=== PATIENT | male | born 1995 | race Caucasian/White ===

== ENCOUNTER 2018-07-31 16:08 | Emergency (ER) | payer SELFPAY ==
[~2018-07-31] VITALS: Ht 170.2 cm; Wt 53.7 kg
[2018-07-31 16:27] VITALS: BP 138/87; PULSE 135; RESP 18; Ht 170.2 cm; Wt 53.7 kg
== END 2018-07-31 22:00 | disposition left against medical advice (07) ==
LOC: E/R 16:08
DX: Z53.21 Procedure and treatment not carried out due to patient leaving prior to being seen by health care provider (principal)
CPT/HCPCS: 82962